=== PATIENT | male | born 2005 | race Caucasian/White ===

== ENCOUNTER 2024-06-07 22:27 | Emergency (ER) | payer BC ==
[~2024-06-07] VITALS: Ht 175.3 cm; Wt 77.1 kg
[2024-06-07 22:29] VITALS: BP 127/76; PULSE 84; RESP 14; TEMP 97.9; O2SAT 99
[2024-06-07 22:41] VITALS: BP 127/76; PULSE 84; RESP 14; TEMP 97.9; O2SAT 99
[2024-06-07] MEDS: NACL 0.9% 1,000 ML IV ONE (23:02)
[2024-06-07] MEDS ORDERED: ONDA-188 SL (23:17)
== END 2024-06-07 23:28 | disposition home or self-care (01) ==
LOC: MED 22:27
DX: F10.129 Alcohol abuse with intoxication, unspecified (principal); Z79.1 Long term (current) use of non-steroidal anti-inflammatories (NSAID)
CPT/HCPCS: 96360; 99283; J7030